=== PATIENT | female | born 1995 | race African-American/Black ===

== ENCOUNTER 2020-07-12 13:46 | Outpatient (CLI) | payer OTHER ==
[2020-07-13 01:24] LABS: SARS-CoV-2 PCR by NAA Not Detected (NotDetected)
== END 2020-07-12 13:47 | disposition home or self-care (01) ==
LOC: CSHLAB 13:46
PROVIDERS: ATTEND Obstetrics & Gynecology
DX: Z20.822 Contact with and (suspected) exposure to COVID-19 (principal)
CPT/HCPCS: 87635; U0003; U0005

== ENCOUNTER 2020-07-16 05:30 | Inpatient (IN) | payer OTHER ==
[~2020-07-16 05:30] MED LIST: Acetaminophen 500 MG TAB PO PRN; Butorphanol Tartrate 1 MG/ML VIAL SLOW IVP PRN; Carboprost 250 MCG/ML AMP IM PRN; Diphenoxylate HCl/Atropine Tablet PO PRN; Docusate 100 MG CAP PO PRN; HYDROcodone/Acetaminophen 5/325 mg Tablet PO PRN; Ibuprofen 800 MG TAB PO PRN; Lactated Ringer's 1,000 ML IV SCH; Lidocaine 1% (PF) 30 ML VIAL SC PRN; Methylergonovine 0.2 MG/ML VIAL IM PRN; Misoprostol 200 MCG TAB PR PRN; Ondansetron PF 4 MG/2 ML Vial IVP PRN; Promethazine HCl 25 MG/ML VIAL IM PRN; hydrALAZINE 20 MG/ML VIAL SLOW IVP PRN
[2020-07-16] MEDS ORDERED: ePHEDrine Sulfate 50 MG/10 ML VIAL ONE (07:00)
[2020-07-16] MEDS ORDERED: Bupivacaine 0.25% HCL 30 ML VIAL ONE (07:00)
[2020-07-16] MEDS ORDERED: NS w/ Oxytocin 30 units 500 ML IV PRN (10:48)
[2020-07-16] MEDS ORDERED: NS w/ Oxytocin 30 units 500 ML IVPB SCH ×2 (11:00)
[2020-07-16 11:32] LABS: Hemoglobin 11.6 g/dL (12.0-15.5); Mean Corpuscular HGB CONC 32.1 g/dL (32.0-36.0); Mean Corpuscular Hemoglobin 28.5 pg (27.0-33.0); Mean Corpuscular Volume 88.7 fl (81.6-98.3); Mean Platelet Volume 10.8 fl (7.4-10.4); Platelet Count 206 10x3/uL (150-450); RBC Distribution Width 13.2 % (11.5-14.5); Red Blood Cell (RBC) Count 4.07 10x6/uL (3.90-5.03); White Blood Cell (WBC) Count 7.2 10x3/uL (3.5-10.5)
[2020-07-16 12:01] LABS: Hep B Surf Ag Non-Reactive S/CO (NonReactive); Syphilis Antibody Nonreactive (Nonreactive); Syphilis Antibody Index 0.04 S/CO (<1.00 Non-Reactive)
[2020-07-16 12:46] VITALS: BMI 32.8
[2020-07-16] MEDS ORDERED: Fentanyl 4 mcg/Bup 0.1% Cadd 100 ML ONE (13:14)
[2020-07-16 14:30] LABS: HIV (1/2) Antibody/Antigen Non-Reactive (NonReactive); HIV 1/2 INDEX 0.09 S/CO (<1.00)
[2020-07-16] MEDS ORDERED: Eucerin (Mineral Oil/Petrolatum,White) 30 gm Jar TOP PRN (14:31)
[2020-07-16] MEDS ORDERED: Ondansetron PF 4 MG/2 ML Vial IVP PRN ×2 (14:31→21:09)
[2020-07-16] MEDS ORDERED: Promethazine HCl 25 MG/ML VIAL IM PRN ×2 (14:31→21:09)
[2020-07-16] MEDS ORDERED: Lactated Ringer's 500 ML IV PRN (14:31)
[2020-07-16] MEDS ORDERED: Acetaminophen 325 MG TAB PO PRN (14:31)
[2020-07-16] MEDS ORDERED: Naloxone HCl 0.4 mg/ml Vial IVP PRN ×2 (14:31)
[2020-07-16] MEDS ORDERED: diphenhydrAMINE 50 MG/ML VIAL IVP PRN (14:31)
[2020-07-16] MEDS ORDERED: Fentanyl 4 mcg/Bupivacaine 0.1% Cassette 100 ML EPIDURAL SCH (14:45)
[2020-07-16] MEDS ORDERED: Communication Order-Pharmacy FS SCH (14:45)
[2020-07-16] MEDS ORDERED: ePHEDrine Sulfate 50 MG/10 ML VIAL SLOW IVP PRN (14:52)
[2020-07-16 17:44] LABS: Amphetamine Not Detected (NotDetected); Barbiturates Screen Not Detected (NotDetected); Benzodiazepine Screen Not Detected (NotDetected); Cocaine Metabolite Screen Not Detected (NotDetected); Methadone Not Detected (NotDetected); Methamphetamine Not Detected (NotDetected); Opiate Screen Not Detected (NotDetected); Oxycodone Screen Not Detected (NotDetected); Phencyclidine (PCP) Not Detected (NotDetected); THC/Cannabinoid Screen Not Detected (NotDetected); Tricyclic Screen Not Detected (NotDetected)
[2020-07-16] MEDS ORDERED: HYDROcodone/Acetaminophen 5/325 mg Tablet PO PRN ×2 (21:09)
[2020-07-16] MEDS ORDERED: Methylergonovine 0.2 MG/ML VIAL IM PRN (21:09)
[2020-07-16] MEDS ORDERED: Lanolin Ointment 7 GM TUBE TOP PRN (21:09)
[2020-07-16] MEDS ORDERED: Benzocaine-Menthol 82.5 ML CAN TOP PRN (21:09)
[2020-07-16] MEDS ORDERED: Milk Of Magnesia 30 ML UDCUP PO PRN (21:09)
[2020-07-16] MEDS ORDERED: NS / Oxytocin 40 units/1000ml 1,000 ML IV SCH (21:09)
[2020-07-16] MEDS ORDERED: Bisacodyl 10 MG SUPP PR PRN (21:09)
[2020-07-16] MEDS ORDERED: hydrALAZINE 20 MG/ML VIAL SLOW IVP PRN (21:09)
[2020-07-16] MEDS ORDERED: diphenhydrAMINE 25 MG CAP PO PRN (21:09)
[2020-07-16] MEDS ORDERED: Zolpidem Tartrate 5 MG TAB PO PRN (21:09)
[2020-07-16] MEDS ORDERED: Misoprostol 200 MCG TAB VAG PRN (21:09)
[2020-07-16] MEDS ORDERED: Preparation H Ointment 28 GM TUBE PR PRN (21:09)
[2020-07-16] MEDS: Docusate Calcium (SURFAK) 240 MG CAP PO SCH (21:38)
[2020-07-16] MEDS: Ibuprofen 800 MG TAB PO SCH (21:38)
[2020-07-17] MEDS: Ibuprofen 800 MG TAB PO SCH ×3 (04:24→20:54)
[2020-07-17] MEDS: Ferrous Sulfate 325 MG TAB PO SCH ×2 (08:29→15:50)
[2020-07-17] MEDS: Prenatal Vitamin 1 TAB PO SCH (08:31)
[2020-07-17] MEDS: Docusate Calcium (SURFAK) 240 MG CAP PO SCH ×2 (08:32→20:54)
[2020-07-17 08:55] LABS: Hemoglobin 10.4 g/dL (12.0-15.5); Mean Corpuscular HGB CONC 32.6 g/dL (32.0-36.0); Mean Corpuscular Hemoglobin 29.6 pg (27.0-33.0); Mean Corpuscular Volume 90.9 fl (81.6-98.3); Mean Platelet Volume 11.3 fl (7.4-10.4); Platelet Count 169 10x3/uL (150-450); RBC Distribution Width 13.3 % (11.5-14.5); Red Blood Cell (RBC) Count 3.51 10x6/uL (3.90-5.03); White Blood Cell (WBC) Count 8.8 10x3/uL (3.5-10.5)
[2020-07-17] MEDS ORDERED: Varicella virus, LIVE 0.5 ML VIAL SC ONE (09:00)
[2020-07-17] MEDS ORDERED: Measles/Mumps/Rubella 10 MCG/0.5 ML VIAL SC ONE (09:00)
[2020-07-17] MEDS ORDERED: Adacel (T-DAP) 0.5 ML SYRINGE IM ONE (09:00)
[2020-07-18] MEDS: Ferrous Sulfate 325 MG TAB PO SCH ×2 (07:19→17:26)
[2020-07-18] MEDS: Ibuprofen 800 MG TAB PO SCH ×3 (07:24→14:39)
[2020-07-18 08:48] VITALS: BP 110/52; TEMP 98.8
[2020-07-18] MEDS: Prenatal Vitamin 1 TAB PO SCH (09:46)
[2020-07-18] MEDS: Docusate Calcium (SURFAK) 240 MG CAP PO SCH (09:46)
== END 2020-07-18 18:32 | disposition home or self-care (01) | DRG 807 ==
LOC: CSHLD 10:35 → CSHANTE 21:00
PROVIDERS: ADMIT Obstetrics & Gynecology; ATTEND Obstetrics & Gynecology
PROC: 10E0XZZ Delivery of Products of Conception, External Approach (ICD-10-PCS; principal; 2020-07-16)
PROC: 3E0P7VZ Introduction of Hormone into Female Reproductive, Via Natural or Artificial Opening (ICD-10-PCS; 2020-07-16)
PROC: 3E033VJ Introduction of Other Hormone into Peripheral Vein, Percutaneous Approach (ICD-10-PCS; 2020-07-16)
DX: O69.81X0 Labor and delivery complicated by cord around neck, without compression, not applicable or unspecified (principal); Z37.0 Single live birth; Z3A.39 39 weeks gestation of pregnancy
CPT/HCPCS: 51702; 80306; 85027; 86780; 86850; 86900; 86901; 87340; 87389; S0020